=== PATIENT | male | born 1985 | race Caucasian/White ===

== ENCOUNTER 2023-06-14 18:12 | Emergency (ER) | payer OTHER, SELFPAY ==
[2023-06-14 18:18] VITALS: BP 160/96
[2023-06-14 18:35] LABS: % Basophils 0.5 % (0-2); % Immature Granulocytes 0.3 % (0-0.5); % Lymphocytes 40.1 % (20.5-51.1); % Monocytes 9.3 % (1.7-9.3); % Neutrophils 47.8 % (42.2-75.2); Absolute Eosinophils 0.1 10^3/uL (0-0.7); Absolute Lymphocytes 2.6 10^3/uL (1.2-3.4); Absolute Monocytes 0.6 10^3/uL (0.1-0.6); Absolute Neutrophils 3.2 10^3/uL (1.4-6.5); Hematocrit 38.9 % (39.0-52.0); Mean Corpuscular Hgb 29.3 pg (27.0-31.0); Mean Corpuscular Volume 81.4 fL (80.0-94.0); Mean Platelet Volume 9.5 fL (7.4-10.4); Nucleated Red Blood Cells % 0 % (-); Platelet Count 312 10^3/uL (130-400); Red Blood Cell Count 4.78 10^6/uL (4.70-6.10); Red Cell Dist. Width 13.2 % (11.5-14.5); White Blood Cell Count 6.6 10^3/uL (4.8-10.8)
[2023-06-14 18:45] LABS: Urine Albumin Negative (Neg - Trace); Urine Bilirubin Negative (Negative); Urine Character Slightly Cloudy (Clear); Urine Color Yellow; Urine Glucose Negative (Negative); Urine Ketone Negative (Negative); Urine Leukocyte Negative (Negative); Urine Nitrite Negative (Negative); Urine Occult Blood 4+ (Negative); Urine Urobilinogen Negative (Neg - 1+)
[2023-06-14 18:50] LABS: ALT (SGPT) 32 U/L (0-50); AST (SGOT) 36 U/L (17-59); Albumin 5.1 g/dl (3.5-5.0); Alkaline Phosphatase 52 U/L (38-126); Blood Urea Nitrogen 18 mg/dl (9-20); Carbon Dioxide 26 mmol/L (22-30); Chloride 103 mmol/L (98-107); Glucose 102 mg/dl (70-99); Potassium 4.2 mmol/L (3.5-5.1); Sodium 137 mmol/L (135-145); Total Bilirubin 0.6 mg/dl (0.2-1.3); Total Protein 8.2 g/dl (6.3-8.2); eGFR > 60.00
[2023-06-14 19:23] LABS: Urine Red Blood Cell >100 /HPF (0-2)
--- NOTE | 2023-06-14 21:17 | ED.GENMED ---
History of Present Illness
General
Chief Complaint: Abdominal Pain
Source: patient
Exam Limitations: none
Time Seen by Provider: 06/14/23 20:46
Nursing documentation reviewed up to this point in time: agreed with
Travel History
Have you had any contact with someone who has COVID-19?: No
Do you have any symptoms of coronavirus? Fever > 100 degrees, chills, cough, shortness of breath, sore throat, loss of taste or smell, muscle aches, or headache?: No
History of Present Illness
History of Present Illness:
Patient presents to ED secondary to sudden onset of left sided abdominal pain radiating down to his groin, approximate 1 hour prior to arrival. Abdominal pain described as sharp, without any alleviating or exacerbating factors. Since onset of
symptoms, however, pain has subsided but he has noted seeing blood with urination. Denies fever or chills. Denies trauma. Denies recent illness. Denies recent change in medications or diet. Denies previous history of similar symptoms. Denies
family history of kidney stones.
Past History
Past History
ED Past Medical History: GERD and Other (Migraines, Bicuspid AV)
ED Past Surgical History: None
Social History
Tobacco: Non-smoker
Alcohol: Occasional
Personal:
Living: with family
Review of Systems
Review of Systems
Allergies reviewed?: Yes
All Other Systems: ROS reviewed and negative except as documented in HPI and ROS
Constitutional: Reports no symptoms; Denies fever
ABD/GI: Reports abdominal pain; Denies nausea or vomiting
: Reports flank pain and bleeding
Musculoskeletal: Reports no symptoms
Skin: Reports no symptoms
Neurological: Reports no symptoms
Phy Exam
Physical Exam
Physical Exam:
Physical Exam
General: no apparent distress, not acutely ill. afebrile
Head: nc/at. eomi
Neck: supple. no meningeal signs.
Heart: s1/s2 regular rate and rhythm, no murmur. equal radial pulses.
Lungs: no acute respiratory distress. clear bilaterally
Abdomen: normal bowel sounds. not tender.
Neuro: alert and oriented. no focal neurological deficits
Skin: no rash
Psychiatric: well kept. interactive and cooperative
Extremities: no edema. no calf tenderness.
Course
Orders/Labs/Results
Orders:
Orders
06/14/23 18:26
Complete Blood Count/With Diff Urgent
Comprehensive Metabolic Panel Urgent
06/14/23 18:29
Urinalysis Reflex To Culture Urgent
Date Specimen was Collected: 06/14/23
Time Specimen was Collected: 18:21
Urine Microscopic Reflex Cult Urgent
06/14/23 20:11
CT Abd/pel Without Iv Or Oral Urgent
Reason For Exam: left flank pain R/O kidney stone
06/14/23 21:19
Tamsulosin [Flomax] 0.4 mg PO NOW STA
Abnormal Lab Results
06/14/23 06/14/23
18:26 18:29
Hct 38.9 L %
(39.0-52.0)
Glucose 102 H mg/dl
(70-99)
Albumin 5.1 H g/dl
(3.5-5.0)
Ur Occult Blood Reflex 4+ A
(Negative)
Urine RBC >100 A /HPF
(0-2)
06/14/23 18:26
06/14/23 18:26
Vital Signs
Initial and Last Documented VS:
Initial Vital Signs
Temp Pulse Resp BP Pulse Ox
98.7 F 81 18 160/96 100
06/14/23 18:18 06/14/23 18:18 06/14/23 18:18 06/14/23 18:18 06/14/23 18:18
Last Documented Vital Signs
Temp Pulse Resp BP Pulse Ox
98.7 F 84 18 131/87 97
06/14/23 18:18 06/14/23 21:45 06/14/23 21:45 06/14/23 21:45 06/14/23 21:45
MDM/Problems Addressed
MDM/Problems Addressed:
History, exam, and CT scan consistent with renal colic. Patient remains symptom-free during observation. Patient is able to void freely independently. Patient will be discharged home in stable condition, with urine strainer, along with urology
consultation as outpatient. Advised to return to ED with worsening symptoms, i.e. fever/inability to urinate/worsening pain. Patient expressed understanding at time of discharge.
*Critical Care Note
Total Time (30-74mins, 75-104mins- exclusive of procedures): Not Applicable
ED Attending Note
-
Portions of this chart may have been created with voice recognition software.� Occasional wrong word or��sound alike� substitutions may have occurred due to the inherent limitations of voice recognition software.
Discharge Plan
Departure
Patient Disposition: Home (Routine Discharge)
Date of Disposition: 06/14/23
Time of Disposition: 21:20
Patient with high blood pressure during this ER visit?: Yes
Discharge Problem:
Renal colic on left side
Instructions: Renal Colic (DC)
Prescriptions:
New
tamsulosin [Flomax] 0.4 mg capsule
0.4 mg PO DAILY Qty: 6 0RF
No Action
losartan 25 MG tablet
25 mg PO QPM
fenofibrate nanocrystallized 145 MG tablet
145 mg PO QPM
pantoprazole [Protonix] 40 mg tablet,delayed release (DR/EC)
40 mg PO DAILY Qty: 10 0RF
sucralfate [Carafate] 1 gram tablet
1 g PO ACHS Qty: 40 0RF
Rx Instructions:
30min to 1 hour before meals and bedtime
Referrals:
Pipe Hallman MD [Active] -
Activity Restrictions/Additional Instructions:
As discussed, please follow-up with referred urologist for further evaluation and treatment. Please return to ED with worsening symptoms, i.e. fever/inability to urinate/worsening pain. Your prescription has been sent electronically to [facility] in [place].
Interventions
Interventions:
*Risk Screen - Suicide Last Done: 06/14/23 18:20
*General Assessment Last Done: 06/14/23 18:20
*Neglect/Abuse Screening Last Done: 06/14/23 18:20
ED- Fall Risk Assessment Last Done: 06/14/23 21:44
*ED COVID-19 Vaccine History Last Done: 06/14/23 21:45
*Nursing Disposition Last Done: 06/14/23 21:45
PB-Kpzjta-Pgfjvsdfmp Assessment Last Done: 06/14/23 21:44
Discharge Date and Time
Discharge Date/Time: 06/14/23 21:30
Print Language: KAZAKH
[2023-06-14] MEDS: FLOMAX 0.400000000000000022 MG PO (21:26)
[2023-06-14 21:45] VITALS: BP 131/87
== END 2023-06-14 21:30 | disposition home or self-care (01) ==
LOC: EMR 18:12
PROVIDERS: Emergency Medicine; EMERGENCY PHYSICIAN Emergency Medicine; FAMILY PHYSICIAN Internal Medicine
DX: N23 Unspecified renal colic (principal); R03.0 Elevated blood-pressure reading, without diagnosis of hypertension
CPT/HCPCS: 99284; 74176; 80053; 81003; 81015; 85025

== ENCOUNTER 2024-04-27 06:34 | Emergency (ER) | payer OTHER, SELFPAY ==
[2024-04-27 06:37] VITALS: BP 128/86
[2024-04-27 07:07] LABS: Hematocrit 40.6 % (39.0-52.0); Hemoglobin 14.6 g/dL (13.0-18.0); Mean Corpuscular Volume 80.7 fL (80.0-94.0); Mean Platelet Volume 10.1 fL (7.4-10.4); Platelet Count 266 10^3/uL (130-400); Red Blood Cell Count 5.03 10^6/uL (4.70-6.10); Red Cell Dist. Width 12.6 % (11.5-14.5); White Blood Cell Count 8.8 10^3/uL (4.8-10.8)
[2024-04-27 07:12] LABS: Blood Urea Nitrogen 22 mg/dl (9-20); Calcium 9.4 mg/dl (8.4-10.2); Carbon Dioxide 21 mmol/L (22-30); Chloride 104 mmol/L (98-107); Glucose 129 mg/dl (70-99); Potassium 4.1 mmol/L (3.5-5.1); Sodium 138 mmol/L (135-145); eGFR > 60.00
[2024-04-27 09:13] VITALS: BMI 32.9
--- NOTE | 2024-04-27 09:14 | ED.GENMED ---
History of Present Illness
General
Chief Complaint: Abdominal Symptoms
Source: patient
Time Seen by Provider: 04/27/24 09:09
History of Present Illness
History of Present Illness:
39-year-old male with past medical history of bicuspid aortic valve and GERD presenting the ER for evaluation of nausea vomiting and diarrhea that began acutely around 9 PM last night, patient reports that symptoms lasted throughout the night but
states vomiting seems to have subsided since arriving to the ER. No reported fevers. He reports multiple family members at home sick with similar. No recent travel or recent antibiotics. Patient also notes some mild upper abdominal cramping. No
other concerns presently.
Past History
Past History
ED Past Medical History: GERD and Other (Migraines, Bicuspid AV)
ED Past Surgical History: None
Social History
Tobacco: Non-smoker
Alcohol: Occasional
Drug: None
Personal:
Living: with family
Review of Systems
Review of Systems
All Other Systems: ROS reviewed and negative except as documented in HPI and ROS
Phy Exam
Physical Exam
Physical Exam:
GENERAL: Alert , in no apparent distress
EYE: clear conjunctiva b/l
HEAD: NCAT
ENT: o/p clr, mmm.
CARDIAC: Tachycardic rate and rhythm, no murmur
LUNGS: Clear breath sounds bilaterally, no acute respiratory distress, no wheezes/rales/rhonchi
ABDOMEN: Soft, without focal tenderness, no r/g, no cvat
NEUROLOGICAL: Alert and oriented
SKIN: Warm and dry, skin intact.
MUSCULOSKELETAL: No edema, well perfused.
PSYCH: Normal and appropriate interaction.
Scores
Heart Failure Risk
Heart Failure Risk Score: Not Applicable
Heart Score for Chest Pain Patients
STEMI patient?: Not applicable
Withdrawal Assessment of Alcohol
Withdrawal Assessment Completed?: Not applicable
Course
Orders/Labs/Results
Orders:
Orders
04/27/24 06:47
BMP [Basic Metabolic Panel] Urgent
Complete Blood Count/No Diff Urgent
04/27/24 09:12
0.9% Sodium Chloride 1000 ml [Nss] 1,000 ml IV BOLUS
Ketorolac [Toradol] 30 mg IV NOW STA
Ondansetron Injectable [Zofran] 4 mg IV NOW STA
04/27/24 09:26
Influenza A+B Rapid Molecular Urgent
MAHESH Source: Nasal Swab
Specimen Description:
Abnormal Lab Results
04/27/24
06:47
Carbon Dioxide 21 L mmol/L
(22-30)
BUN 22 H mg/dl
(9-20)
Glucose 129 H mg/dl
(70-99)
04/27/24 06:47
04/27/24 06:47
Vital Signs
Initial and Last Documented VS:
Initial Vital Signs
Temp Pulse Resp BP Pulse Ox
98.1 F 122 28 128/86 98
04/27/24 06:37 04/27/24 06:37 04/27/24 06:37 04/27/24 06:37 04/27/24 06:37
Last Documented Vital Signs
Temp Pulse Resp BP Pulse Ox
99.1 F 92 16 114/77 97
04/27/24 09:36 04/27/24 10:00 04/27/24 10:00 04/27/24 10:00 04/27/24 10:00
MDM/Problems Addressed
Differential Diagnosis Includes:
Gastroenteritis, flu, dehydration, GERD/gastritis
MDM/Problems Addressed:
39-year-old male presenting the ER for evaluation of nausea vomiting and diarrhea with acute onset that began last night. Multiple family members at home sick with similar symptoms. Suspect gastroenteritis/flu is most likely diagnosis. On arrival
patient was tachycardic in triage and remains this way. He does report nausea/vomiting or a little bit improved. Will treat with Toradol, Zofran and normal saline. Flu swab ordered. Anticipate discharge home following.
*Pulse Oximetry
Patient hypoxic: no
*Critical Care Note
Total Time (30-74mins, 75-104mins- exclusive of procedures): Not Applicable
Patient Management
Escalation/DeEscalation of care consider admission/obs:
Patient feeling improvement following medications and IV fluids. Was able to tolerate p.o. prior to discharge and feels comfortable being discharged home. Aware of return precautions to the ER.
ED Attending Note
-
Portions of this chart may have been created with voice recognition software.� Occasional wrong word or��sound alike� substitutions may have occurred due to the inherent limitations of voice recognition software.
Discharge Plan
Departure
Patient Disposition: Home (Routine Discharge)
Date of Disposition: 04/27/24
Time of Disposition: 10:26
Patient with high blood pressure during this ER visit?: No
Discharge Problem:
Nausea, vomiting, and diarrhea
Instructions: Nausea and Vomiting, Adult (DC)
Prescriptions:
New
ondansetron 4 mg tablet,disintegrating
4 mg PO TIDPRN PRN (Reason: nausea/vomiting) Qty: 10 0RF
No Action
losartan 25 MG tablet
25 mg PO QPM
fenofibrate nanocrystallized 145 MG tablet
145 mg PO QPM
pantoprazole [Protonix] 40 mg tablet,delayed release (DR/EC)
40 mg PO DAILY Qty: 10 0RF
sucralfate [Carafate] 1 gram tablet
1 g PO ACHS Qty: 40 0RF
Rx Instructions:
30min to 1 hour before meals and bedtime
tamsulosin [Flomax] 0.4 mg capsule
0.4 mg PO DAILY Qty: 6 0RF
Referrals:
Greg Espinoza MD [Family Provider] -
Interventions
Interventions:
*Risk Screen - Suicide Last Done: 04/27/24 06:37
*General Assessment Last Done: 04/27/24 09:14
*Neglect/Abuse Screening Last Done: 04/27/24 06:37
ED- Fall Risk Assessment Last Done: 04/27/24 09:38
*ED COVID-19 Vaccine History Last Done: 04/27/24 09:14
*Nursing Disposition Last Done: 04/27/24 10:45
AY-Slbihi-Bmquinizbf Assessment Last Done: 04/27/24 09:37
Discharge Date and Time
Discharge Date/Time: 04/27/24 10:45
Print Language: POLISH
[2024-04-27] MEDS: NSS 1000 IV (09:24)
[2024-04-27] MEDS: ZOFRAN 4 MG IV (09:29)
[2024-04-27] MEDS: TORADOL 30 MG IV (09:30)
[2024-04-27 10:00] VITALS: BP 114/77
== END 2024-04-27 10:45 | disposition home or self-care (01) ==
LOC: EMR 06:34
PROVIDERS: EMERGENCY PHYSICIAN Emergency Medicine; FAMILY PHYSICIAN Internal Medicine
DX: R19.7 Diarrhea, unspecified (principal); R11.2 Nausea with vomiting, unspecified; R10.10 Upper abdominal pain, unspecified; R00.0 Tachycardia, unspecified; Q23.81 Bicuspid aortic valve; K21.9 Gastro-esophageal reflux disease without esophagitis; G43.909 Migraine, unspecified, not intractable, without status migrainosus
CPT/HCPCS: 99284; 96374; 96375; 96361; 80048; 85027; 87502

== ENCOUNTER 2024-08-11 16:13 | Emergency (ER) | payer OTHER, SELFPAY ==
[2024-08-11 16:13] VITALS: BMI 35.5
[2024-08-11 16:24] VITALS: BP 124/74
[2024-08-11 17:03] LABS: % Basophils 0.7 % (0-2); % Eosinophils 3.4 % (0-6); % Immature Granulocytes 0.5 % (0-0.5); % Lymphocytes 42.9 % (20.5-51.1); % Monocytes 9.9 % (1.7-9.3); % Neutrophils 42.6 % (42.2-75.2); Absolute Eosinophils 0.2 10^3/uL (0-0.7); Absolute Lymphocytes 2.6 10^3/uL (1.2-3.4); Absolute Monocytes 0.6 10^3/uL (0.1-0.6); Absolute Neutrophils 2.6 10^3/uL (1.4-6.5); Hematocrit 40.9 % (39.0-52.0); Hemoglobin 14.3 g/dL (13.0-18.0); Mean Corpuscular Hgb 29.4 pg (27.0-31.0); Nucleated Red Blood Cells % 0 % (-); Platelet Count 279 10^3/uL (130-400); Red Blood Cell Count 4.87 10^6/uL (4.70-6.10); Red Cell Dist. Width 12.6 % (11.5-14.5); White Blood Cell Count 6.2 10^3/uL (4.8-10.8)
[2024-08-11 17:08] LABS: INR 0.95
[2024-08-11 17:20] LABS: ALT (SGPT) 27 U/L (0-50); AST (SGOT) 25 U/L (17-59); Albumin 5.1 g/dl (3.5-5.0); Alkaline Phosphatase 40 U/L (38-126); Blood Urea Nitrogen 13 mg/dl (9-20); Carbon Dioxide 27 mmol/L (22-30); Chloride 107 mmol/L (98-107); Glucose 93 mg/dl (70-99); Potassium 4.6 mmol/L (3.5-5.1); Sodium 142 mmol/L (135-145); Total Bilirubin 0.4 mg/dl (0.2-1.3); Total Protein 8.2 g/dl (6.3-8.2); eGFR > 60.00
[2024-08-11 17:34] LABS: Troponin I < 0.012 ng/ml
[2024-08-11 18:37] VITALS: BP 122/81
[2024-08-11 19:00] VITALS: BP 109/75
[2024-08-11 19:57] LABS: Lipase 92 U/L (23-300)
[2024-08-11 20:42] LABS: D-Dimer < 0.27 ug/mlFEU (0.00-0.50)
--- NOTE | 2024-08-11 20:59 | ED.GENMED ---
History of Present Illness
General
Chief Complaint: Chest Pain
Source: patient
Exam Limitations: none
Time Seen by Provider: 08/11/24 19:07
Nursing documentation reviewed up to this point in time: agreed with
History of Present Illness
History of Present Illness:
Patient presents to ED secondary to 3-day history of persistent right-sided chest pain. Chest pain described as sharp, worse with certain movements and deep inspiration, minimal at rest. Denies fever or chills. Denies direct trauma. Denies
nausea or vomiting. Denies diarrhea. No recent change in medications or diet. Patient has taken Tylenol with minimal relief in symptoms. Patient does have a 2-year-old at home, with whom he does play with frequently. In addition, patient
reports riding his bike for 10 miles, couple days prior to onset of symptoms, which he does not do on regular basis. There is no family history of early heart disease. There is no family history of blood clots. Patient does have history of
bicuspid aortic valve, which is being followed by [facility] on annual basis.
Past History
Past History
ED Past Medical History: GERD and Other (Migraines, Bicuspid AV)
ED Past Surgical History: None
Social History
Tobacco: Non-smoker
Alcohol: Occasional
Drug: None
Personal:
Living: with family
Review of Systems
Review of Systems
Allergies reviewed?: Yes
All Other Systems: ROS reviewed and negative except as documented in HPI and ROS
Constitutional: Reports no symptoms; Denies fever
Respiratory: Reports no symptoms
Cardiac: Reports no symptoms
ABD/GI: Reports no symptoms
Musculoskeletal: Reports no symptoms
Skin: Reports no symptoms
Neurological: Reports no symptoms
Phy Exam
Physical Exam
Physical Exam:
Physical Exam
General: no apparent distress, not acutely ill. afebrile
Head: nc/at. eomi
Neck: supple. normal range of motion.
Heart: s1/s2 regular rate and rhythm
Lungs: no acute respiratory distress. clear bilaterally
Abdomen: normal bowel sounds. not tender. minimal epigastric/RUQ tenderness to palpation
Neuro: alert and oriented x 3. no focal neurological deficits
Skin: no rash
Psychiatric: well kept. interactive and cooperative
Extremities: no edema. no calf tenderness.
Scores
Heart Score for Chest Pain Patients
STEMI patient?: No
History: Slightly or Non-Suspicious
ECG: Normal
Age: </= 45 years
Risk Factors: No Risk Factors
Troponin: </= Normal Limit
Heart Score for Chest Pain Patients: 0
Heart Score Risk: 2.5% MACE over next 6 weeks
Course
Orders/Labs/Results
Orders:
Orders
08/11/24 16:14
Electrocardiogram (*1) Urgent
Reason for Study: Chest Pain
EKG- Treatment ONCE
08/11/24 16:42
Complete Blood Count/With Diff Urgent
Comprehensive Metabolic Panel Urgent
Lipase Urgent
Comment: ADDON
PT/INR [Prothrombin Time] Urgent
Troponin I Urgent
08/11/24 19:26
Add On- LAB Urgent
Tests Added?: lipase
CR Chest - 2 Views Urgent
Comment:
Reason For Exam: right sided cp
US Abdomen Complete/Upper Urgent
Comment:
Reason For Exam: RUQ pain
08/11/24 20:07
D-Dimer Urgent
Abnormal Lab Results
08/11/24
16:42
Monocytes % 9.9 H %
(1.7-9.3)
Albumin 5.1 H g/dl
(3.5-5.0)
08/11/24 16:42
08/11/24 16:42
Vital Signs
Initial and Last Documented VS:
Initial Vital Signs
Temp Pulse Resp BP Pulse Ox
98.5 F 60 18 124/74 100
08/11/24 16:24 08/11/24 16:24 08/11/24 16:24 08/11/24 16:24 08/11/24 16:24
Last Documented Vital Signs
Temp Pulse Resp BP Pulse Ox
98.5 F 60 16 119/75 100
08/11/24 16:24 08/11/24 21:30 08/11/24 21:30 08/11/24 21:00 08/11/24 16:24
MDM/Problems Addressed
MDM/Problems Addressed:
Patient with an unremarkable workup in ED, including blood work, EKG, and chest x-ray. History and exam consistent with likely musculoskeletal etiology for his pain, contributed by his recent activity as well as having a young child at home, with
whom he plays with. Will advise rest, Tylenol/Motrin for relief, along with PCP follow-up as an outpatient. Advised to return to ED with worsening symptoms.
Abdominal ultrasound report reviewed with the patient, including need to follow-up with PCP. Pt given copy of US report at discharge
*EKG
Interpreted by ED Provider?: Yes
EKG Intrepretation Date: 08/11/24
Heart Rate: 57
Rate: bradycardiac
Rhythm: sinus
[place]: normal axis
Interval: normal interval
*Critical Care Note
Total Time (30-74mins, 75-104mins- exclusive of procedures): Not Applicable
ED Attending Note
-
Portions of this chart may have been created with voice recognition software.� Occasional wrong word or��sound alike� substitutions may have occurred due to the inherent limitations of voice recognition software.
Discharge Plan
Departure
Patient Disposition: Home (Routine Discharge)
Date of Disposition: 08/11/24
Time of Disposition: 21:23
Patient with high blood pressure during this ER visit?: Yes
Condition: Good
Discharge Problem:
Chest pain
Instructions: Chest Pain PCP Follow Up
Prescriptions:
No Action
losartan 25 MG tablet
25 mg PO QPM
fenofibrate nanocrystallized 145 MG tablet
145 mg PO QPM
pantoprazole [Protonix] 40 mg tablet,delayed release (DR/EC)
40 mg PO DAILY Qty: 10 0RF
sucralfate [Carafate] 1 gram tablet
1 g PO ACHS Qty: 40 0RF
Rx Instructions:
30min to 1 hour before meals and bedtime
tamsulosin [Flomax] 0.4 mg capsule
0.4 mg PO DAILY Qty: 6 0RF
ondansetron 4 mg tablet,disintegrating
4 mg PO TIDPRN PRN (Reason: nausea/vomiting) Qty: 10 0RF
Referrals:
Greg Espinoza MD [Family Provider, Internal Medicine]
Activity Restrictions/Additional Instructions:
As discussed, please follow-up with your primary care physician for reevaluation. Please consider return to ED with worsening symptoms.
Interventions
Interventions:
*Risk Screen - Suicide Last Done: 08/11/24 16:24
*General Assessment Last Done: 08/11/24 16:24
*Neglect/Abuse Screening Last Done: 08/11/24 16:24
*ED- Fall Risk Assessment Last Done: 08/11/24 16:24
*ED COVID-19 Vaccine History Last Done: 08/11/24 16:24
*Nursing Disposition Last Done: 08/11/24 21:54
ED- Cardiac Assessment Last Done: 08/11/24 20:11
Discharge Date and Time
Discharge Date/Time: 08/11/24 21:55
Print Language: CITIZEN OF [place]
[2024-08-11 21:00] VITALS: BP 119/75
== END 2024-08-11 21:55 | disposition home or self-care (01) ==
LOC: EMR 16:13
PROVIDERS: Emergency Medicine; EMERGENCY PHYSICIAN Emergency Medicine; FAMILY PHYSICIAN Internal Medicine
DX: R07.89 Other chest pain (principal); Q23.81 Bicuspid aortic valve
CPT/HCPCS: 99285; 71046; 76700; 80053; 83690; 84484; 85025; 85379; 85610; 93005

== ENCOUNTER 2025-01-24 12:59 | Emergency (ER) | payer OTHER, SELFPAY ==
[2025-01-24 13:01] VITALS: BP 134/86
[2025-01-24 13:12] LABS: Glucose - Point of Care 105 mg/dl (70-99)
[2025-01-24 13:13] VITALS: BP 118/77
[2025-01-24 13:19] VITALS: BMI 34.5
[2025-01-24 13:26] VITALS: BP 118/75
[2025-01-24 13:29] LABS: Hematocrit 39.5 % (39.0-52.0); Hemoglobin 13.9 g/dL (13.0-18.0); Mean Corp Hgb Conc. 35.2 g/dL (33.0-37.0); Mean Corpuscular Volume 81.8 fL (80.0-94.0); Nucleated Red Blood Cells % 0 % (-); Platelet Count 295 10^3/uL (130-400); Red Cell Dist. Width 12.4 % (11.5-14.5)
[2025-01-24 13:45] LABS: ALT (SGPT) 23 U/L (0-50); AST (SGOT) 25 U/L (17-59); Albumin 4.8 g/dl (3.5-5.0); Alkaline Phosphatase 43 U/L (38-126); Blood Urea Nitrogen 15 mg/dl (9-20); Calcium 9.9 mg/dl (8.4-10.2); Carbon Dioxide 27 mmol/L (22-30); Chloride 102 mmol/L (98-107); Estimated Creatinine Clearance 99 ml/min; Glucose 102 mg/dl (70-99); Potassium 4.3 mmol/L (3.5-5.1); Sodium 135 mmol/L (135-145); Total Protein 8.2 g/dl (6.3-8.2); eGFR > 60.00
[2025-01-24 14:00] VITALS: BP 120/80
--- NOTE | 2025-01-24 14:38 | ED.GENMED ---
History of Present Illness
General
Chief Complaint: Visual Problem
Source: patient
Exam Limitations: none
Time Seen by Provider: 01/24/25 14:07
Nursing documentation reviewed up to this point in time: agreed with
History of Present Illness
History of Present Illness:
Patient without any significant past history, presents to ED secondary to brief episode of 'visual disturbance'. Patient states that suddenly he noticed 'kaleidoscope' appearance over the right half of his visual field, lasting a few seconds 1
episode on 4 different occasions over the past 1 hr. Since then, patient has not had any recurrent symptoms. Denies headache. Denies dizziness. Denies loss of sensation or weakness. Denies difficulty with ambulation. Denies any palpitations.
Denies recent illness. Denies recent change in medications or diet. However, patient does state that he has significant increased stress levels recently, including work as well as her at home. Over the past few weeks at home, while at
work, he has noticed twitching of his right eye intermittently.
Past History
Past History
ED Past Medical History: GERD and Other (Migraines, Bicuspid AV)
ED Past Surgical History: None
Social History
Tobacco: Non-smoker
Alcohol: Occasional
Drug: None
Personal:
Living: with family
Review of Systems
Review of Systems
Allergies reviewed?: Yes
All Other Systems: ROS reviewed and negative except as documented in HPI and ROS
Constitutional: Reports no symptoms
Respiratory: Reports no symptoms
Cardiac: Reports no symptoms
ABD/GI: Reports no symptoms
Musculoskeletal: Reports no symptoms
Skin: Reports no symptoms
Neurological: Reports other (visual disturbance)
Phy Exam
Physical Exam
Physical Exam:
Physical Exam
General: no apparent distress, not acutely ill. afebrile
Head: nc/at. eomi
Neck: supple. normal range of motion
Heart: s1/s2 regular rate and rhythm
Lungs: no acute respiratory distress. clear bilaterally
Abdomen: normal bowel sounds. not tender.
Neuro: alert and oriented x 3. no focal neurological deficits. normal speech. normal gait
Skin: no rash
Psychiatric: well kept. interactive and cooperative
Extremities: no edema. no calf tenderness.
Course
Orders/Labs/Results
Orders:
Orders
01/24/25 13:16
Electrocardiogram (*1) Stat
Reason for Study: TIA/Stroke
01/24/25 13:17
EKG- Treatment ONCE
01/24/25 13:19
CMP [Comprehensive Metabolic Panel] Stat
Complete Blood Count/With Diff Stat
01/24/25 14:38
NEUROLOGY CONSULT Urgent
Consulting Provider: Gilberto Hutchison
Was physician already notified: Yes
Reason for consult: visual disturbance
01/24/25 15:50
CT Head & Neck Angio W/wo IV Urgent
Comment:
Reason For Exam: visual disburbance
Abnormal Lab Results
01/24/25 01/24/25
13:09 13:19
Immature Gran % 0.6 H %
(0-0.5)
Neutrophils % 42.1 L %
(42.2-75.2)
Monocytes % 12.3 H %
(1.7-9.3)
Glucose 102 H mg/dl
(70-99)
POC Glucose 105 H mg/dl
(70-99)
01/24/25 13:19
01/24/25 13:19
Vital Signs
Initial and Last Documented VS:
Initial Vital Signs
Temp Pulse Resp BP Pulse Ox
98.3 F 76 16 134/86 100
01/24/25 13:01 01/24/25 13:01 01/24/25 13:01 01/24/25 13:01 01/24/25 13:01
Last Documented Vital Signs
Temp Pulse Resp BP Pulse Ox
98.3 F 72 12 120/80 97
01/24/25 13:01 01/24/25 14:45 01/24/25 14:45 01/24/25 14:00 01/24/25 14:45
MDM/Problems Addressed
MDM/Problems Addressed:
Patient evaluated in ED by stroke fellow, Dr. Hutchison, who recommends obtaining CT head and CT angiogram of head and neck. If negative, patient can be discharged home for outpatient follow-up.
CT head without acute findings. Pt remains symptom free during observation. Pt will be referred to pcp/ophthalmology for outpatient follow-up.
*Pulse Oximetry
SaO2: 96
Oxygen Mode of Delivery: Room air
Patient hypoxic: no
*Critical Care Note
Total Time (30-74mins, 75-104mins- exclusive of procedures): Not Applicable
ED Attending Note
-
Portions of this chart may have been created with voice recognition software.� Occasional wrong word or��sound alike� substitutions may have occurred due to the inherent limitations of voice recognition software.
Discharge Plan
Departure
Patient Disposition: Home (Routine Discharge)
Date of Disposition: 01/24/25
Time of Disposition: 17:58
Patient with high blood pressure during this ER visit?: Yes
Condition: Good
Discharge Problem:
Visual disturbance
Prescriptions:
No Action
losartan 25 MG tablet
25 mg PO QPM
fenofibrate nanocrystallized 145 MG tablet
145 mg PO QPM
pantoprazole [Protonix] 40 mg tablet,delayed release (DR/EC)
40 mg PO DAILY Qty: 10 0RF
sucralfate [Carafate] 1 gram tablet
1 g PO ACHS Qty: 40 0RF
Rx Instructions:
30min to 1 hour before meals and bedtime
tamsulosin [Flomax] 0.4 mg capsule
0.4 mg PO DAILY Qty: 6 0RF
ondansetron 4 mg tablet,disintegrating
4 mg PO TIDPRN PRN (Reason: nausea/vomiting) Qty: 10 0RF
Referrals:
Madi Levi [Provider Group]
Greg Espinoza MD [Family Provider, Internal Medicine]
Brando Collins MD [Active, Ophthalmology]
Activity Restrictions/Additional Instructions:
As discussed, please follow-up with your primary care physician and/or referred stitcher set up operator automatic for reevaluation.
Interventions
Interventions:
*Risk Screen - Suicide Last Done: 01/24/25 13:01
*General Assessment Last Done: 01/24/25 13:21
*Neglect/Abuse Screening Last Done: 01/24/25 13:01
*ED- Fall Risk Assessment Last Done: 01/24/25 13:21
*ED COVID-19 Vaccine History Last Done: 01/24/25 13:21
*ED Influenza Vaccine History Last Done: 01/24/25 13:21
*Nursing Disposition Last Done: 01/24/25 18:18
ED- Neurological Assessment Last Done: 01/24/25 13:22
ED-EENT Assessment Last Done: 01/24/25 13:29
ED Swallowing Screen Last Done: 01/24/25 13:29
Discharge Date and Time
Discharge Date/Time: 01/24/25 18:05
Print Language: GREEK
--- NOTE | 2025-01-24 16:24 | CON.NEURO ---
Neuro Assessment/Plan
Assessment
Frank Madden is a 39 y/o M with PMH migraines presenting with visual obscuration. He describes multiple transient episodes of crescrentic kalediscope and obscured vision in the right hemifield of his right eye, which lasted several seconds then
rapidly improved. Denies headache or other migrainous symptoms. Neurological examination otherwise intact. Overall, favor acephalic migraine given prominent migraine history and positive features of visual aura. However, given some components of
monocular features and possible negative components (ie. vision loss) differential also includes amarousus fugax or central retinal artery occlusion. As a first pass would obtain a non contrast head CT for acute pathology and CT angiogram to
evaluate for high grade stenosis of the CHRISTA. Lower on differential is seizure given relatively maintained awareness.
Plan
- obtain non contrast head CT
- obtain CT angiogram
- if no evidence of large transcortical infarct, hemorrhage, or other lesion, or high grade stenosis on CTA, can followup outaptient with consdieration of MRI brain without contrast (outpatient)
- outpatient routine EEG
- continue nurtec (rimegepant) PRN for migraines
- outpatient followup (states that he follows at [place] vs [facility] migraine evaulation at [facility])
Consultation
Order
Date of Consultation: 01/24/25
Requesting Provider: [facility]
Reason for Consult: Visual changes
Subjective/Objective
Subjective Data
Date of Service: January 24, 2025
Frank Madden is a 39 y/o M with PMH migraines presenting with visual obscuration.
Today he reports developing several seconds of visual aura, occurring 3-5 times. He describes symptoms as a crescentic kaledescoipe in his right eye only, which partially moves across his right hemifield. On further evaluation, he also stated at
times it appeared translucent and that he had impaired visual perception in his right hemifield. He denies any headache or other migraine symptoms (e.g. photophobia, phonophobia), focal weakness, numbness, or other focal neurological symptoms, and
notes maintained awareness during episode. He reports multiple recent psychosocial stressors including sleep deprivation, stresses at work and with his new child.
In terms of his migraine history: his typical migraine is moderate to severe, bifrontal/retro-orbital, associated with photophobia, phonophobia, and nausea, although notably never visual aura. Migraines can last up to 16-18 hours at time, occuring
about 5 times per month, however are rapidly improved following Nurtec (rimegepant) 75 mg PRN.
He also self-reports a history of atrial fibrillation (for two days), although I am not able to independently verify this in the chart.
Objective Data
Vital Signs
Temp Pulse Resp BP Pulse Ox
36.8 C 72 12 120/80 97
01/24/25 13:01 01/24/25 14:45 01/24/25 14:45 01/24/25 14:00 01/24/25 14:45
Lab Results
01/24/25 13:19
01/24/25 13:19
Sodium 135 mmol/L (135-145) 01/24/25 13:19
Potassium 4.3 mmol/L (3.5-5.1) 01/24/25 13:19
BUN 15 mg/dl (9-20) 01/24/25 13:19
Glucose 102 mg/dl (70-99) H 01/24/25 13:19
Calcium 9.9 mg/dl (8.4-10.2) 01/24/25 13:19
Patient Allergies
No Known Allergies Allergy (Verified 08/11/24 16:24)
CVA Assessment
Onset of Stroke Symptoms
Onset of symptoms known: Yes
Date of onset of symptoms: 01/24/25
Time pt last seen normal is known: Yes
Date last time pt seen normal: 01/23/25
NIH Stroke Score
Level of Consciousness: 0 - Alert
LOC Questions: 0-Answers both correctly
LOC Commands: 0-Performs both correctly
Best Horizontal Gaze: 0-Normal
Visual Stewart: 0=Normal, no visual loss
Facial Palsy: 0=Normal, symmetrical
Motor - Right Arm: 0=No drift 10 seconds
Motor - Left Arm: 0=No drift 10 seconds
Motor - Right Le-No drift 5 seconds
Motor - Left Le-No drift 5 seconds
Limb Ataxia: 0-Absent
Sensation: 0-Normal
Best Language: 0-No aphasia
Dysarthria: 0-Normal
Extinction and Inattention: 0-No abnormality
NIH Total Score:: 0
Tenecteplase Contraindications
Inclusion and Exclusion criteria reviewed: Yes (Not administered as minor deficit/improvement. )
Past History
Past Medical / Surgical History
Past Medical History: None
Social History
Alcohol: Occasional
Living: with family
Review of Systems
-
All other systems: Reviewed and negative
Physical Exam
-
General: Well Developed and Well Nourished
Eyes: PERRLA and Other (Fundoscopic examination partially obscured by miosis however no clear pathology. )
HEENT: Normocephalic and Atraumatic
Skin: Unremarkable
Extended Neurological Exam
Attention Span & Concentration: Awake and Alert (Oriented to person, place, and time. )
Involuntary Movement: None
Speech: Quality Unremarkable and Quantity Unremarkable
Cranial Nerve II: Left Eye: Pupillary Reactivity Unremarkable and Visual Stewart Intact
Cranial Nerve II: Right Eye: Pupillary Reactivity Unremarkable and Visual Stewart Intact
Cranial Nerves III, IV, : Extraocular Movement: Extraocular Movement Full in all Directions
Cranial Nerve V: Facial Sensation: Facial Sensation Unremarkable to Cold
Cranial Nerve VII: Facial Symmetry: Normal Facial Symmetry
Cranial Nerve VIII: Hearing: Unremarkable Hearing to Normal Conversational Volume
Cranial Nerves IX, X: Palate Movement: Palate Elevation Symmetric
Cranial Nerve XI: Shoulder Shrug: Unremarkable
Cranial Nerve XII: Tongue Protusion: Midline
Muscle Strength, Overall: Full Throughout
Muscle Bulk & Tone: Bulk Unremarkable
Pronator Drift: No Drift in Upper Extremities and No Drift in Lower Extremities
Touch Sensation: Testing in Upper Extremities and Unremarkable
Coordination: [id number] Testing Unremarkable
Data Reviewed
-
CT-A: Pending
CT Head: Pending
Medications
-
Home Medications
�Medication �Instructions �Recorded
fenofibrate nanocrystallized 145 145 mg PO QPM 12/09/20
mg tablet
losartan 25 mg tablet 25 mg PO QPM 12/09/20
pantoprazole 40 mg tablet,delayed 40 mg PO DAILY GI issues #10 tabs 03/01/22
release (Protonix)
sucralfate 1 gram tablet (Carafate) 1 g PO ACHS GI issues #40 tabs 03/01/22
tamsulosin 0.4 mg capsule (Flomax) 0.4 mg PO DAILY #6 caps 06/14/23
ondansetron 4 mg disintegrating 4 mg PO TIDPRN PRN nausea/vomiting 04/27/24
tablet #10 tabs
== END 2025-01-24 18:05 | disposition home or self-care (01) ==
LOC: EMR 12:59
PROVIDERS: Emergency Medicine; CONSULT PHYSICIAN Student in an Organized Health Care Education/Training Program; EMERGENCY PHYSICIAN Emergency Medicine; FAMILY PHYSICIAN Internal Medicine
DX: H53.9 Unspecified visual disturbance (principal); R03.0 Elevated blood-pressure reading, without diagnosis of hypertension; Q23.81 Bicuspid aortic valve; K21.9 Gastro-esophageal reflux disease without esophagitis; G43.909 Migraine, unspecified, not intractable, without status migrainosus
CPT/HCPCS: 99284; 70496; 70498; 80053; 82962; 85025; 93005; Q9967